=== PATIENT | female | born 1960 | race African-American/Black ===

== ENCOUNTER 2018-11-11 20:55 | Emergency (ER) | payer OTHER ==
[~2018-11-11] VITALS: Ht 165.1 cm; Wt 78.9 kg
[2018-11-11 21:08] VITALS: BP 163/101
--- NOTE | 2018-11-11 21:20 | NUR ---
PT PRESENTED TO THE ER WITH A C/O LT KNEE PAIN. PT DENIES TRAUMA. PT TRIED A BRACE, OTC MEDICATION AND LOTIONS WITH NO RELIEF.
--- NOTE | 2018-11-11 21:30 | NUR ---
XRAY IN PROGRESS AT THE BEDSIDE.
[2018-11-11] MEDS ORDERED: KETOROLAC TROMETHAMINE INJ 30 MG/ML VIAL ONE (22:26)
[2018-11-11] MEDS ORDERED: KETOROLAC TROMETHAMINE INJ 60 MG/2 ML VIAL IM ONE (22:30)
== END 2018-11-11 22:37 | disposition home or self-care (01) ==
LOC: ER 21:01
DX: M17.12 Unilateral primary osteoarthritis, left knee (principal)
CPT/HCPCS: 73564; 96372; 99283; J1885; J7030